=== PATIENT | female | born 1960 | race Caucasian/White ===

== ENCOUNTER 2021-09-22 14:21 | Emergency (ER) | payer OTHER, SELFPAY ==
[2021-09-22 14:32] VITALS: BP 136/87; PULSE 89; RESP 16; TEMP 36.8; O2SAT 96; BMI 25.8
[2021-09-22 14:57] LABS: Add Manual Diff / Slide Review NO; Basophils Absolute Auto 0 /uL (0-100); Basophils Percent Auto 0.9 % (0-2); Eosinophils Absolute Auto 0 /uL (0-450); Hematocrit 44.4 % (36-46); Hemoglobin 15.3 g/dL (12.0-16.0); Lymphocytes Absolute Auto 1600 /uL (1100-4500); Lymphocytes Percent Auto 50.8 % (25-40); Mean Corpuscular HGB Conc 34.4 % (30-36); Mean Corpuscular Hemoglobin 29.2 PG (26-34); Mean Corpuscular Volume 84.9 fL (80-100); Monocytes Absolute Auto 500 /uL (0-900); Monocytes Percent Auto 15.8 % (3-14); Neutrophils Absolute Auto 1000 /uL (1500-7000); Neutrophils Percent Auto 32.5 % (50-75); Platelet Count 211 X10^3/uL (150-400); Red Blood Cell Count 5.24 X10^6/uL (4.0-5.2); Red Cell Distribution Width 14.1 % (11.6-14.8); White Blood Cell Count 3.1 X10^3/uL (4.5-11.0)
[2021-09-22 15:09] LABS: Alanine Aminotransferase 28 IU/L (<35); Albumin 4.4 g/dL (3.5-5.0); Albumin Globulin Ratio 1.1 (1.0-2.8); Alkaline Phosphatase 130 U/L (38-126); Aspartate Aminotransferase 40 IU/L (14-36); BUN Creatinine Ratio 15.3 (6-22); Bilirubin Total 0.4 mg/dL (0.2-1.3); Blood Urea Nitrogen 15 mg/dL (7-17); Calcium 8.9 mg/dL (8.4-10.2); Carbon Dioxide 30 mmol/L (22-32); Chloride 100 mmol/L (98-107); Estimated Glomerular Filt Rate > 60 mL/min (>60); Globulin 3.9 g/dL (1.7-4.1); Glucose 94 mg/dL (80-110); HEMOLYSIS < 15 (0-50); Lipase 185 U/L (23-300); Potassium 4.5 mmol/L (3.4-5.1); Sodium 138 mmol/L (137-145); Total Protein 8.3 g/dL (6.3-8.2)
[2021-09-22 15:28] LABS: COVID19 -Nasal RAPID POSITIVE (Negative)
[2021-09-22 15:46] LABS: Bacteria Urine Occasional (0-1); RBC Urine 0-1/HPF (0-5/HPF); Squamous Epithelial Cell Urine 0-1 /HPF (0-5/HPF); WBC Urine 0-1/HPF (0-5/HPF)
[2021-09-22 16:54] VITALS: PULSE 77; RESP 18; O2SAT 100
[2021-09-22 16:55] VITALS: BP 134/80
[2021-09-22 17:00] VITALS: BP 119/73; PULSE 76; O2SAT 98
[2021-09-22 17:30] VITALS: BP 134/82; PULSE 81; O2SAT 95
--- NOTE | 2021-09-22 18:34 | DI.RAD.S_ITS ---
PROCEDURE: XR CHEST 1V INDICATIONS: cough TECHNIQUE: One view of the chest was acquired. COMPARISON: None. FINDINGS: Surgical changes and devices: None. Lungs and pleura: Lungs are clear. No pleural effusions or pneumothorax. Mediastinum: Mediastinal contours appear normal. Heart size is normal. Bones and chest wall: No suspicious bony lesions. Overlying soft tissues appear unremarkable. IMPRESSION: No acute cardiopulmonary disease. Dictated by: Arielle Jeffrey M.D. on 09/22/2021 at 20:04 Approved by: Arielle Jeffrey M.D. on 09/22/2021 at 20:04
--- NOTE | 2021-09-22 18:34 | DI.CT.S_ITS ---
PROCEDURE: CT ABDOMEN PELVIS W CON INDICATIONS: iv contrast only/abd pain TECHNIQUE: After the administration of intravenous contrast, axial sections acquired from the lung bases to the pubic symphysis. Coronal and sagittal reformats were performed. For radiation dose reduction, the following was used: automated exposure control, adjustment of mA and/or kV according to patient size. COMPARISON: None. FINDINGS: Image quality: Excellent. Lung bases: Clear lung bases. No hiatal hernia. Heart: Normal size heart without pericardial effusion. ABDOMEN: Liver: No masses Gallbladder: Normal wall thickness. Biliary ducts: Nondilated. Pancreas: Normal. Spleen: Normal size. Adrenal Glands: No nodules. Kidneys and Ureters: Normal enhancement. No hydronephrosis or hydroureter. No calcifications. Stomach and Bowel: Stomach, small bowel loops, and colon are unremarkable. Normal appendix. Peritoneum: No abnormal intraperitoneal fluid. No free air. Ventral Wall: No hernias. Abdominal Nodes: No retroperitoneal or mesenteric adenopathy by size criteria. Vessels: The abdominal aorta is normal caliber. The proximal inferior vena cava is decompressed. PELVIS: Pelvic Organs: The uterus is surgically absent. The ovaries are normal. Bladder: Decompressed bladder with normal wall thickness. Pelvic Nodes: No enlarged lymph nodes. Miscellaneous: No hernias are seen. Bones: Severe disc and endplate degeneration at the L2-3 level with trace retrolisthesis. Trace anterolisthesis L4-5. IMPRESSION: 1. No acute process. 2. Decompressed IVC indicating dehydration. Dictated by: Arielle Jeffrey M.D. on 09/22/2021 at 20:08 Approved by: Arielle Jeffrey M.D. on 09/22/2021 at 20:14
--- NOTE | 2021-09-22 18:35 | ED.ABDPAIN ---
HPI - Abdominal Pain General Chief Complaint: Abdominal Pain Stated Complaint: body pain, nausea Time Seen by Provider: 09/22/21 18:26 Source: patient Mode of arrival: Ambulatory History of Present Illness HPI narrative: Patient here for abdominal pain/headache/cough/fever. Patient states abdominal discomfort has been ongoing for the past 1 month. She had intermittent constipation. She did use [id number] laxatives and dietary changes and constipation did improve but continues to have off and on waxing waning generalized abdominal discomfort. Three days ago had headache fever chills and dry cough. She states that has improved. Informed patient she is COVID positive. Denies any dyspnea. Vital signs at times are reassuring. No nausea vomiting diarrhea. No urinary complaints. No dyspnea Related Data Previous Rx's Medication Instructions Recorded baclofen 20 mg tablet 20 mg PO TID PRN pain #12 tabs 09/22/21 pantoprazole 40 mg tablet,delayed 40 mg PO DAILY #30 tabs 09/22/21 release (Protonix) Allergies Allergy/AdvReac Type Severity Reaction Status Date / Time oxycodone [From Percocet] Allergy Mild Hives Verified 09/22/21 14:37 Penicillins Allergy Unknown Verified 09/22/21 14:37 acetaminophen [From Vicodin] AdvReac Mild Gastrointestinal Verified 09/22/21 14:37 Upset hydrocodone [From Vicodin] AdvReac Mild Gastrointestinal Verified 09/22/21 14:37 Upset naproxen AdvReac Mild Gastrointestinal Verified 09/22/21 14:37 Upset Review of Systems Review of Systems Narrative: GENERAL: Positive chills, negative fatigue, malaise, positive fever, negative sweats. HEENT: Denies sinus pain, ear pain, sore throat RESPIRATORY: Denies dyspnea, positive cough CARDIOVASCULAR: Denies chest pain, palpitations GASTROINTESTINAL: Denies nausea, vomiting, positive abdominal pain : Denies dysuria, frequency, hematuria MUSCULOSKELETAL: denies muscle or bony pain SKIN: Denies rash, skin lesions NEUROLOGIC: Denies weakness, numbness ROS Unobtainable: All systems reviewed & are unremarkable except as noted in HPI and below Patient History Social History Smoking Status: Never smoker Smoking Status: Never smoker alcohol intake frequency: holidays/special occasions only Substance Use Type: does not use Exam Narrative Exam Narrative: GENERAL: in no distress, not toxic not dyspneic HEAD: Normocephalic. EYES: Pupils equal round No scleral icterus. ENT: Mucous membranes moist. NECK: Trachea midline. CARDIOVASCULAR: Regular rate and rhythm without murmurs RESPIRATORY: Clear to auscultation. Breath sounds equal bilaterally. No wheezes, rales, or rhonchi. Speaking full sentences GASTROINTESTINAL: Abdomen soft, mild diffuse tenderness but no peritoneal signs, bowel sounds are present. No CVA tenderness EXTREMITIES: No gross deformities. BACK: No flank tenderness. NEURO: AOx4. SKIN: Warm and dry PSYCH: Not anxious, is cooperative Initial Vital Signs Initial Vital Signs: Vital Signs Temperature 98.3 F 09/22/21 14:32 Pulse Rate 89 09/22/21 14:32 Respiratory Rate 16 09/22/21 14:32 Blood Pressure 136/87 09/22/21 14:32 Pulse Oximetry 96 09/22/21 14:32 Oxygen Delivery Method 09/22/21 14:32 Course Course Course Narrative: No new issues during course of stay Orders Ordered: ED Orders 09/22/21 15:25 Urine Culture Stat Urine Microscopic Stat 09/22/21 18:34 CT abdomen pelvis w con Stat XR chest 1V Stat Discontinued Medications Sodium Chloride (Normal Saline 0.9%) 1,000 mls @ 1,000 mls/hr IV BOLUS ONE Stop: 09/22/21 19:33 Last Infusion: 09/22/21 20:11 Dose: 0 mls/hr Documented By: Admin: 09/22/21 18:53 Dose: 1,000 mls/hr Documented By: GISSELLE Sodium Chloride (Normal Saline 0.9%) 1,000 mls @ 1,000 mls/hr IV BOLUS ONE Stop: 09/22/21 22:00 Last Infusion: 09/22/21 22:31 Dose: 0 mls/hr Documented By: Admin: 09/22/21 21:09 Dose: 1,000 mls/hr Documented By: MASON Pantoprazole Sodium (Pantoprazole 40 Mg Vial) 40 mg IV NOW ONE Stop: 09/22/21 21:02 Last Admin: 09/22/21 21:09 Dose: 40 mg Documented By: MASON Reevaluation(s) Reevaluation #1: Reviewed results with patient. Exam and laboratory studies and imaging are reassuring. At this time etiology of abdominal discomfort nonspecific. However agrees to start with Protonix. She is scheduled for colonoscopy through her family doctor. She does have a primary care. She states she is had some muscle spasms and inquiring about muscle relaxer, I will prescribe her baclofen. Return precautions reviewed with her. She desires discharge home. COVID quarantine 10 days reviewed with her. Not requiring supplemental oxygen. No pneumonia on chest x-ray Vital Signs Vital signs: Vital Signs - 8 hr 09/22/21 16:54 09/22/21 16:55 09/22/21 17:00 Pulse Rate 77 Respiratory Rate 18 Blood Pressure 134/80 119/73 Pulse Oximetry 100 Oxygen Delivery Method 09/22/21 17:00 09/22/21 17:30 09/22/21 17:30 Pulse Rate 76 81 Respiratory Rate Blood Pressure 134/82 Pulse Oximetry 98 95 Oxygen Delivery Method 09/22/21 22:44 Pulse Rate 77 Respiratory Rate 18 Blood Pressure 136/85 Pulse Oximetry 96 Oxygen Delivery Method Room Air MDM - Abdominal Pain Differential Diagnosis Differential diagnosis: Likely abdominal pain, acute appendicitis, calculus of kidney, constipation, diverticulitis, pancreatitis, small bowel obstruction and other (UTI/COVID) Lab Data Result diagrams: 09/22/21 14:45 09/22/21 14:45 Labs: Lab Results 09/22/21 09/22/21 09/22/21 Range/Units 14:40 14:45 14:45 WBC 3.1 L (4.5-11.0) X10^3/uL RBC 5.24 H (4.0-5.2) X10^6/uL Hgb 15.3 (12.0-16.0) g/dL Hct 44.4 (36-46) % MCV 84.9 (80-100) fL MCH 29.2 (26-34) PG MCHC 34.4 (30-36) % RDW 14.1 (11.6-14.8) % Plt Count 211 (150-400) X10^3/uL Neut % (Auto) 32.5 L (50-75) % Lymph % (Auto) 50.8 H (25-40) % [place] % (Auto) 15.8 H (3-14) % Eos % (Auto) 0.0 L (2-4) % Baso % (Auto) 0.9 (0-2) % Neut # (Auto) 1000 L (2932-1720) /uL Lymph # (Auto) 1600 (5712-8130) /uL [place] # (Auto) 500 (0-900) /uL Eos # (Auto) 0 (0-450) /uL Baso # (Auto) 0 (0-100) /uL Sodium 138 (137-145) mmol/L Potassium 4.5 (3.4-5.1) mmol/L Chloride 100 (98-107) mmol/L Carbon Dioxide 30 (22-32) mmol/L BUN 15 (7-17) mg/dL Creatinine 0.98 (0.52-1.04) mg/dL Estimated GFR > 60 (>60) mL/min BUN/Creatinine Ratio 15.3 (6-22) Glucose 94 (80-110) mg/dL Calcium 8.9 (8.4-10.2) mg/dL Total Bilirubin 0.4 (0.2-1.3) mg/dL AST 40 H (14-36) IU/L ALT 28 (<35) IU/L Alkaline Phosphatase 130 H (38-126) U/L Total Protein 8.3 H (6.3-8.2) g/dL Albumin 4.4 (3.5-5.0) g/dL Globulin 3.9 (1.7-4.1) g/dL Albumin/Globulin Ratio 1.1 (1.0-2.8) Lipase 185 (23-300) U/L Urine RBC (0-5/HPF) Urine WBC (0-5/HPF) Ur Squamous Epith Cells (0-5/HPF) Urine Bacteria (None) Ur Culture Indicated? SARS-CoV-2 (PCR) Positive H (Negative) 09/22/21 Range/Units 15:25 WBC (4.5-11.0) X10^3/uL RBC (4.0-5.2) X10^6/uL Hgb (12.0-16.0) g/dL Hct (36-46) % MCV (80-100) fL MCH (26-34) PG MCHC (30-36) % RDW (11.6-14.8) % Plt Count (150-400) X10^3/uL Neut % (Auto) (50-75) % Lymph % (Auto) (25-40) % [place] % (Auto) (3-14) % Eos % (Auto) (2-4) % Baso % (Auto) (0-2) % Neut # (Auto) (5750-5264) /uL Lymph # (Auto) (8400-0358) /uL [place] # (Auto) (0-900) /uL Eos # (Auto) (0-450) /uL Baso # (Auto) (0-100) /uL Sodium (137-145) mmol/L Potassium (3.4-5.1) mmol/L Chloride (98-107) mmol/L Carbon Dioxide (22-32) mmol/L BUN (7-17) mg/dL Creatinine (0.52-1.04) mg/dL Estimated GFR (>60) mL/min BUN/Creatinine Ratio (6-22) Glucose (80-110) mg/dL Calcium (8.4-10.2) mg/dL Total Bilirubin (0.2-1.3) mg/dL AST (14-36) IU/L ALT (<35) IU/L Alkaline Phosphatase (38-126) U/L Total Protein (6.3-8.2) g/dL Albumin (3.5-5.0) g/dL Globulin (1.7-4.1) g/dL Albumin/Globulin Ratio (1.0-2.8) Lipase (23-300) U/L Urine RBC 0-1/hpf (0-5/HPF) Urine WBC 0-1/hpf (0-5/HPF) Ur Squamous Epith Cells 0-1 /hpf (0-5/HPF) Urine Bacteria Occasional (0-1) (None) Ur Culture Indicated? Culture not indicate SARS-CoV-2 (PCR) (Negative) Point of care testing: Urine Dip Bedside Urine Glucose Negative Bedside Urine Bilirubin - Negative Bedside Urine Ketone +/- 5 Urine Specific [place] 1.030 Bedside Urine Occult Blood - Negative Bedside Urine pH 6 Bedside Urine Protein - Negative Bedside Urine Urobilinogen - Negative Bedside Urine Nitrite - Negative Bedside Urine Leukocytes - Negative Esterase Imaging Data Chest x-ray: Radiologist's Impression: [address] [address] XRay Report Signed Patient: Kristie Evans MR#: [id number] : 1960 Acct:[id number] Age/Sex: 61 / F Date of Service: 09/22/21 Loc: ED Accession Number: [id number] ?? Procedure: XR chest 1V Ordering Provider: Clive Samuel MD PROCEDURE:? XR CHEST 1V ? INDICATIONS:? cough ? TECHNIQUE:? One view of the chest was acquired.? ? COMPARISON:? None. ? FINDINGS:? ? Surgical changes and devices:? None.? ? Lungs and pleura:? Lungs are clear.? No pleural effusions or pneumothorax.? ? Mediastinum:? Mediastinal contours appear normal.? Heart size is normal.? ? Bones and chest wall:? No suspicious bony lesions.? Overlying soft tissues appear unremarkable.? ? IMPRESSION:? No acute cardiopulmonary disease.? ? ? Dictated by: Arielle Jeffrey M.D. on 09/22/2021 at 20:04 ? ? Approved by: Arielle Jeffrey M.D. on 09/22/2021 at 20:04 ? CT scan - abdomen/pelvis: Radiologist's Impression: [place] [address] CT Scan Report Signed Patient: Kristie Evans MR#: [id number] : 1960 Acct:[id number] Age/Sex: 61 / F Date of Service: 09/22/21 Loc: ED Accession Number: [id number] ?? Procedure: CT abdomen pelvis w con Ordering Provider: Clive Samuel MD PROCEDURE:? CT ABDOMEN PELVIS W CON ? INDICATIONS:? iv contrast only/abd pain ? TECHNIQUE:? After the administration of intravenous contrast, axial sections acquired from the lung bases to the pubic symphysis.? Coronal and sagittal reformats were performed.? For radiation dose reduction, the following was used:? automated exposure control, adjustment of mA and/or kV according to patient size.? ? COMPARISON:? None. ? FINDINGS:? Image quality:? Excellent.? ? Lung bases:? Clear lung bases.? No hiatal hernia.? ? Heart:? Normal size heart without pericardial effusion. ? ABDOMEN: Liver:? No masses Gallbladder:? Normal wall thickness. Biliary ducts:? Nondilated. Pancreas:? Normal. Spleen:? Normal size. Adrenal Glands:? No nodules. Kidneys and Ureters:? Normal enhancement.? No hydronephrosis or hydroureter.? No calcifications. ? Stomach and Bowel:? Stomach, small bowel loops, and colon are unremarkable.? Normal appendix. Peritoneum:? No abnormal intraperitoneal fluid.? No free air.? ? Ventral Wall: ? No hernias.? Abdominal Nodes:? No retroperitoneal or mesenteric adenopathy by size criteria.? Vessels:? The abdominal aorta is normal caliber.? The proximal inferior vena cava is decompressed. ? PELVIS: Pelvic Organs:? The uterus is surgically absent.? The ovaries are normal. Bladder:? Decompressed bladder with normal wall thickness. Pelvic Nodes: No enlarged lymph nodes.? Miscellaneous: No hernias are seen. ? ? ? Bones:? Severe disc and endplate degeneration at the L2-3 level with trace retrolisthesis.? Trace anterolisthesis L4-5. ? ? IMPRESSION:? ? 1. No acute process. ? 2. Decompressed IVC indicating dehydration.? ? ? Dictated by: Arielle Jeffrey M.D. on 09/22/2021 at 20:08 ? ? Approved by: Arielle Jeffrey M.D. on 09/22/2021 at 20:14 ? MDM Narrative Medical decision making narrative: Appropriate for discharge home. Exam and laboratory studies and imaging are reassuring. Not requiring supplemental oxygen. Quarantine 10 days reviewed with patient regarding COVID. Agrees to start PPI Protonix. She is scheduled for colonoscopy through her family doctor. Has had muscle spasms and agrees with baclofen. Return precautions reviewed with her. Not toxic at discharge. Discharge Plan Departure Patient Disposition: Home Clinical Impression: Abdominal pain, COVID-19 Instructions: DI for Abdominal Pain-Adult, DI for COVID-19 (Suspected or Confirmed ) Activity Restrictions/Additional Instructions: See your family doctor in a week for re-evaluation. However, be sure to quarantine total 10 days from 1st day of your symptoms. Regarding COVID. Keep well hydrated. Prescription for Protonix has been sent to your pharmacy to [facility] tomorrow. Be sure to confirm your colonoscopy date. Return if worse if any questions or concerns. Keep well hydrated Prescriptions: New pantoprazole [Protonix] 40 mg tablet,delayed release (DR/EC) 40 mg PO DAILY Qty: 30 0RF baclofen 20 mg tablet 20 mg PO TID PRN (Reason: pain) Qty: 12 0RF Visit Report Forms: Patient Portal/API
[2021-09-22] MEDS: SODIUM CHLORIDE 0.9% 1,000 ML 1000 ML IV ×2 (18:53→21:09)
[2021-09-22] MEDS: PANTOPRAZOLE 40 MG VIAL IV (21:09)
[2021-09-22 22:44] VITALS: BP 136/85; PULSE 77; RESP 18; O2SAT 96
== END 2021-09-22 22:46 | disposition home or self-care (01) ==
PROVIDERS: Emergency Medicine; Emergency Provider Emergency Medicine
DX: U07.1 COVID-19 (principal); R10.9 Unspecified abdominal pain
CPT/HCPCS: 36415; 71045; 74177; 80053; 81003; 81015; 83690; 85025; 87086; 87635; 96361; 96374; 99284; C9803; C9113; Q9967

== ENCOUNTER 2021-12-06 10:19 | Day surgery (SDC) | payer OTHER, SELFPAY ==
[2021-12-06] VITALS (7 sets, daily range): BP systolic 119–145; BP diastolic 78–98; PULSE 66–72; RESP 12–16; TEMP 36.1–36.4; O2SAT 98–100; BMI 25.0
--- NOTE | 2021-12-06 | PATH_ITS ---
[facility] Accession Number: [id number] . 01 Material submitted: . colon - COLON POLYP . 01 Diagnosis: Colon Polyp, Biopsy: Hyperplastic polyp. MRV 12/09/2021 1418 Local . 01 Electronically signed: . Christina Jimenez MD, Pathologist NPI- [id number] . 01 Gross description: . The specimen is received in formalin, labeled with the patient's name and colon polyp, and consists of a single irregular thayer soft tissue fragment measuring 0.2 cm in greatest dimension. Submitted entirely in cassette A1. ([id number]) /FRR 12/09/2021 0328 Local . 01 Pathologist provided ICD-10: D12.6 . 01 CPT . 085344 Specimen Comment: A courtesy copy of this report has been sent to [phone] Performed at: 01 [facility] [address] [place] [address], [place], [place] [id number] MD Severiano Manjarrez MD Phone: [phone]
[2021-12-06 11:02] LABS: COVID19 -Nasal RAPID Negative (Negative)
--- NOTE | 2021-12-06 11:28 | PM.HP.1 ---
History of Present Illness History of Present Illness Date Patient Seen: 12/06/21 Time Patient Seen: 11:28 Chief complaint: DX COLONOSCOPY Narrative: I reviewed my recent office note. Patient had a recent impaction event requiring enemas suppositories and oral laxatives plus digital manipulation. She was successful at relieving this and then was able to bowel prep for today. Patient History Family & Social History Social History: household members family Tobacco & Substance use: Smoking Status Never smoker alcohol intake frequency holiday/special occasion Substance Use Type does not use Meds Home Medications and Allergies Allergies Allergy/AdvReac Type Severity Reaction Status Date / Time acetaminophen [From Percocet] Allergy Verified 12/06/21 10:53 Penicillins Allergy Verified 12/06/21 10:52 hydrocodone [From Vicodin] AdvReac Mild Gastrointestinal Verified 12/06/21 10:52 Upset naproxen AdvReac Mild Gastrointestinal Verified 12/06/21 10:52 Upset oxycodone AdvReac Verified 12/06/21 10:52 Review of Systems Review of Systems ROS: Yes All systems reviewed with the patient and are negative except as otherwise documented Exam Vital Signs (past 8 hours): - 12/06/21 10:54 Temperature 97.6 F Pulse Rate 71 Respiratory Rate 16 Blood Pressure 145/91 H Pulse Oximetry 100 Oxygen Delivery Method Room Air Oxygen Delivery Method Room Air Const General: cooperative HENMT Head: normal to inspection Eyes General: appearance normal, both eyes and all related structures Neck Neck: normal visual inspection Chest Chest: normal inspection of the chest Resp Effort & Inspection: normal respiratory effort Cardio Rate: regular rate GI Inspection: normal to inspection Skin General: no rashes or lesions noted Neuro General: patient alert and patient awake Extrem General: normal to inspection and no pedal edema Psych Appearance: grossly normal Objective Labs Labs: Laboratory Results - last 24 hr 12/06/21 10:38 SARS-CoV-2 (PCR) Negative Assessment & Plan Assessment & Plan narrative: 61-year-old female with altered bowel habit and increased constipation of late. She has a palpable internal nodule that is indicated for evaluation. Colonoscopy is planned for today. Time Spent With Patient Critical Care time: I spent a total of [] minutes of critical care time on this patient's care today; this time is exclusive of procedural time.
--- NOTE | 2021-12-06 11:30 | PM.PREOP ---
Pre-operative Note COVID-19 COVID-19 status: Negative Result date/Date tested (Pos, Neg/Pending): 12/06/21 Criteria for continued procedure: Possibility delay results in more complex future surgery or treatment Interval Note History & Physical reviewed/Exam performed by Physician: Yes Changes to H&P: Yes ASA Class (for procedural sedation): I
[2021-12-06] MEDS: SODIUM CHLORIDE 0.9% 1,000 ML 84 ML IV (12:30)
--- NOTE | 2021-12-06 12:46 | P.OP.COLON_ITS ---
Operative Date/Time/Diagnoses Date of procedure: 12/06/21 Time of procedure: 12:46 Pre-op diagnosis: Internal rectal nodule palpated digitally, change in bowel habits with constipation Post-op diagnosis: same Procedure & Clinicians Study performed: Colonoscopy with cold forceps polypectomy Same procedure as scheduled: Yes Indications: Internal rectal nodule palpated digitally, change in bowel habits with constipation Surgeon: Yimi Zamora Procedure Notes SCOAP/Timeout: Done Procedure in detail: After the risks and benefits were explained, written and verbal informed consent was obtained. The patient was brought into the procedure room and placed into the left lateral decubitus position. Please see nurse podiatry assistant notes for sedation details. Digital rectal examination was accomplished. The scope was introduced into the patient and advanced under direct visualization to the cecum as identified by the appendiceal orifice and ileocecal valve. The scope was slowly withdrawn to carefully examine the mucosa for any defects or lesions. Comprehensive imaging was accomplished throughout the rectum including the dentate line. The colon was decompressed, the scope was then removed from the patient who tolerated the procedure well. Bowel prep adequate Pediatric colonoscope Scope withdrawal time: 12 minutes Sedation minutes: 19 Complications: none Impression: There was a diminutive rectal polyp removed with cold forceps. No proctitis. No colitis. No mass lesions. The patient had grade 2 to grade 3 nonbleeding nonthrombosed hemorrhoids. No additional significant pathology was appreciated throughout. Endoscopic diagnosis 1. Grade 2 to grade 3 hemorrhoids 2. Rectal polyp Post-procedure Plan for aftercare: 1. Await histopathology. 2. Fiber based bowel regimen as previously discussed. 3. Surveillance colonoscopy timing will be contingent on pathology results. Disposition: PACU
== END 2021-12-06 13:30 | disposition home or self-care (01) ==
PROVIDERS: PCP Naturopath; Referring Provider Internal Medicine Gastroenterology; Visit Provider Internal Medicine Gastroenterology
PROC: 0DJD8ZZ Inspection of Lower Intestinal Tract, Via Natural or Artificial Opening Endoscopic (ICD-10-PCS; CPT 45378; principal; 2021-12-06 11:30)
DX: K59.00 Constipation, unspecified (principal); K62.1 Rectal polyp; K64.0 First degree hemorrhoids; Z20.822 Contact with and (suspected) exposure to COVID-19; D12.6 Benign neoplasm of colon, unspecified
CPT/HCPCS: 45380; 87635; C9803; J2704